=== PATIENT | male | born 1930 | race Caucasian/White ===

== ENCOUNTER 2017-06-04 11:32 | Day surgery (SDC) | payer OTHER ==
[~2017-06-04 11:32] MED LIST: BP MEDS PO; COUM5TAB PO; PRIL40CA PO; TAZT240C2 PO; ZOCO80TA PO
[2017-06-04] MEDS ORDERED: MUPIROCIN 2% OINT 1 APPLIC/GM SYR NASAL SCH (12:00)
[2017-06-04] MEDS ORDERED: CHLORHEXIDINE GLUCONATE 2 % 1 PACK (2 CLOTHS) TOPICAL SCH (12:00)
[2017-06-04] MEDS ORDERED: POVIDONE IODINE 5% (ANTISEPSIS KIT) 4 APPLICATIONS EACH NARE SCH (12:00)
[2017-06-04] MEDS ORDERED: CEFAZOLIN INJ 2,000 MG in SODIUM CHLORIDE 0.9% INJ 100 ML IV SCH (12:00)
[2017-06-04] MEDS ORDERED: NS 1000 ML IV SCH (12:00)
[2017-06-04] MEDS ORDERED: ATOR80TA45 PO (12:51)
[2017-06-04] MEDS ORDERED: OMEP20TA93 PO (12:51)
[2017-06-04] MEDS ORDERED: HYDR12.57 PO (12:51)
[2017-06-04] MEDS ORDERED: OCUVTAB4 PO (12:51)
[2017-06-04] MEDS ORDERED: CARD180C5 PO (12:51)
[2017-06-04] MEDS ORDERED: TAMS0.4C4 PO (12:51)
[2017-06-04] MEDS ORDERED: EZET10 PO (12:51)
[2017-06-04] MEDS ORDERED: ECASA81 PO (12:51)
--- NOTE | 2017-06-04 14:04 | MR ---
cc: Mendoza Phillips MD, Alan S MD DATE: 06/04/2017 PROCEDURES PERFORMED: Loop recorder insertion. DESCRIPTION OF PROCEDURE: The patient was brought to the DOC Unit in the postabsorptive state. After informed consent was obtained, a [employer] loop recorder was inserted subcutaneously in the left chest. The patient tolerated the procedure well without any apparent complications. Tachybrady pause and atrial fibrillation detection was enabled. The initial R-wave was 0.56 millivolts. The serial number was [id number]. Mendoza Phillips MD CHANDNI/SUELLEN , 01:50 PM , 02:03 PM
== END 2017-06-04 15:00 | disposition home or self-care (01) ==
LOC: HDOC 11:32 → HDIC 11:33 → HDOC 15:00
PROVIDERS: ATTEND Nuclear Medicine Nuclear Cardiology
DX: I48.91 Unspecified atrial fibrillation (principal); I35.0 Nonrheumatic aortic (valve) stenosis; R01.1 Cardiac murmur, unspecified; I49.3 Ventricular premature depolarization; I49.1 Atrial premature depolarization; I12.9 Hypertensive chronic kidney disease with stage 1 through stage 4 chronic kidney disease, or unspecified chronic kidney disease; N18.3 Chronic kidney disease, stage 3 (moderate); I73.9 Peripheral vascular disease, unspecified; I65.29 Occlusion and stenosis of unspecified carotid artery; J44.9 Chronic obstructive pulmonary disease, unspecified; E78.5 Hyperlipidemia, unspecified; Z72.0 Tobacco use; R94.31 Abnormal electrocardiogram [ECG] [EKG]; Z95.1 Presence of aortocoronary bypass graft; Z86.010 Personal history of colon polyps
CPT/HCPCS: 33282; C1764; J7030